=== PATIENT | female | born 2000 | race Caucasian/White ===

== ENCOUNTER 2025-04-08 03:51 | Emergency (ER) | payer OTHER, SELFPAY ==
[2025-04-08 03:54] VITALS: BP 98/61
[2025-04-08 04:51] VITALS: BMI 33.5
[2025-04-08 04:53] VITALS: BP 101/66
--- NOTE | 2025-04-08 05:18 | ED.GENMED ---
History of Present Illness
General
Chief Complaint: Skin Problem
Source: patient and family (Mother at bedside)
Exam Limitations: none
Time Seen by Provider: 04/08/25 04:36
History of Present Illness
History of Present Illness:
This is a 24-year-old female with no significant past medical history, takes no medicines on a daily basis. She presents with 2-day history of sore throat, low-grade fever with onset of painful palmar nodules yesterday and onset of pain bilateral
feet primarily at the soles and toes of her feet since last night.
She has had intermittent myalgias, intermittent chills and aches and intermittent palpitations more so with activity. No cough. Sore throat has improved but has not resolved. She has been eating and drinking normally. No abdominal pain or chest
pain. No dysuria no urgency no hematuria.
No known close contacts with similar symptoms.
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
Last menstrual period 1 week ago, normal and on time.
Sexually active. 1 partner. No prior history of STD.
Past History
Past History
ED Past Medical History: None
ED Past Surgical History: None
Social History
Tobacco: Non-smoker
Personal: Single
Living: with family
Employment: Employed
Family History
Family History: Other (Noncontributory)
Phy Exam
Physical Exam
Physical Exam:
GENERAL: 24-year-old female appears her stated age, bright and alert, pleasant, appears in no acute distress. Mother is accompanying.
EYE: pupils equal and reactive. anicteric
NECK: Supple, nontender, no meningismus, no significant adenopathy.
ENT: posterior pharynx is mildly injected with several superficial punctate ulcerations along the soft palate, oral mucosa is moist. TM clear b/l, nares patent.
CARDIAC: Regular rate and rhythm. no murmur. No rub.
LUNGS: Clear breath sounds bilaterally, no acute respiratory distress, no wheezes/rales/rhonchi
ABDOMEN: Soft, nondistended, without focal tenderness, no r/g, no cvat. normoactive BS.
NEUROLOGICAL: Alert and oriented x3, no focal neuro deficits. Gait is steady.
SKIN: Warm and dry, normal color, skin intact. Bilateral palms and soles with mildly painful macules.
MUSCULOSKELETAL: No C/C/E. peripheral pulses are full and equal b/l. No palpable tenderness.
PSYCH: Normal and appropriate interaction.
Course
Orders/Labs/Results
Orders:
Orders
04/08/25 05:17
CBC/With Diff [Complete Blood Count/With Diff] Urgent
Comprehensive Metabolic Panel Urgent
Syphilis/T. pallidum Ab Reflex Urgent
Comment: ADD ON
Rapid Strep Group A Urgent
MAT Source: Throat/Pharynx
Specimen Description:
Date Specimen was Collected: 04/08/25
Time Specimen was Collected: 05:15
04/08/25 05:18
Electrocardiogram (*1) Urgent
Reason for Study: Palpitations
EKG- Treatment ONCE
04/08/25 05:30
Add On- LAB Urgent
Tests Added?: RPR (syphillis/T. pallidum ab relfex)
Abnormal Lab Results
04/08/25
05:17
Absolute Monos (auto) 1.3 H 10^3/uL
(0.1-0.6)
Lymphocytes % 19.3 L %
(20.5-51.1)
Monocytes % 17.1 H %
(1.7-9.3)
Chloride 109 H mmol/L
(98-107)
BUN 19 H mg/dl
(7-17)
Glucose 107 H mg/dl
(70-99)
04/08/25 05:17
04/08/25 05:17
Vital Signs
Initial and Last Documented VS:
Initial Vital Signs
Temp Pulse Resp BP Pulse Ox
98.3 F 60 16 98/61 97
04/08/25 03:54 04/08/25 03:54 04/08/25 03:54 04/08/25 03:54 04/08/25 03:54
Last Documented Vital Signs
Temp Pulse Resp BP Pulse Ox
97.7 F 60 20 101/66 100
04/08/25 04:53 04/08/25 04:53 04/08/25 04:53 04/08/25 04:53 04/08/25 05:23
MDM/Problems Addressed
Differential Diagnosis Includes:
Concern for viral enanthem/exanthem such as uxfm-mldt-tjr-mouth disease, other consideration is strep pharyngitis, secondary syphilis.
Will check labs, rapid strep, RPR.
*Pulse Oximetry
SaO2: 100
Oxygen Mode of Delivery: Room air
Patient hypoxic: no
*Critical Care Note
Total Time (30-74mins, 75-104mins- exclusive of procedures): Not Applicable
Update Note
Update Note:
06:30
Labs are all reassuring. Rapid strep is negative.
RPR is pending.
Highly suspect bayf-yadr-nnz-mouth disease.
Recommend supportive measures, continuing ibuprofen increasing to 600 mg every 6 hours as needed for pain, fever.
Discussed importance of staying well-hydrated on a daily basis.
A work note has been provided for today and tomorrow with plan for return on Tuesday, April 10.
Prompt follow-up with PCP for recheck.
ED Attending Note
-
Portions of this chart may have been created with voice recognition software.� Occasional wrong word or��sound alike� substitutions may have occurred due to the inherent limitations of voice recognition software.
Discharge Plan
Departure
Patient Disposition: Home (Routine Discharge)
Date of Disposition: 04/08/25
Time of Disposition: 06:38
Patient with high blood pressure during this ER visit?: No
Condition: Good
Discharge Problem:
Hand, foot and mouth disease
Instructions: Hand, foot, and mouth disease and herpangina
Prescriptions:
No Action
No Current Medications
0
Referrals:
David Hsieh DO [Family Provider, Internal Medicine] - Call in 1-3 days for appt
Stand Alone Forms: Return to Work
Interventions
Interventions:
*Risk Screen - Suicide Last Done: 04/08/25 03:54
*General Assessment Last Done: 04/08/25 04:55
*Neglect/Abuse Screening Last Done: 04/08/25 03:54
*ED- Fall Risk Assessment Last Done: 04/08/25 03:57
*ED COVID-19 Vaccine History Last Done: 04/08/25 04:55
ED-Skin Assessment Last Done: 04/08/25 05:04
Discharge Date and Time
Print Language: UPPER SORBIAN
[2025-04-08 05:29] LABS: Hematocrit 38.5 % (37.0-47.0); Hemoglobin 13.1 g/dL (12.0-16.0); Mean Corp Hgb Conc. 34.0 g/dL (33.0-37.0); Mean Corpuscular Volume 90.4 fL (81.0-99.0); Nucleated Red Blood Cells % 0 %; Platelet Count 203 10^3/uL (130-400); Red Cell Dist. Width 12.4 % (11.5-14.5)
[2025-04-08 05:52] LABS: ALT (SGPT) 15 U/L (0-35); AST (SGOT) 19 U/L (14-36); Albumin 4.2 g/dl (3.5-5.0); Alkaline Phosphatase 39 U/L (38-126); Blood Urea Nitrogen 19 mg/dl (7-17); Calcium 8.9 mg/dl (8.4-10.2); Carbon Dioxide 23 mmol/L (22-30); Chloride 109 mmol/L (98-107); Estimated Creatinine Clearance 103 ml/min; Glucose 107 mg/dl (70-99); Potassium 4.2 mmol/L (3.5-5.1); Sodium 137 mmol/L (135-145); Total Protein 6.6 g/dl (6.3-8.2); eGFR > 60.00
[2025-04-08 07:09] VITALS: BP 96/66
[2025-04-09 15:21] LABS: Syphilis/T. pallidum Ab Reflex Negative (Negative)
== END 2025-04-08 07:05 | disposition home or self-care (01) ==
LOC: EMR 03:51
PROVIDERS: EMERGENCY PHYSICIAN Emergency Medicine; FAMILY PHYSICIAN Internal Medicine
DX: B08.4 Enteroviral vesicular stomatitis with exanthem (principal); R00.2 Palpitations
CPT/HCPCS: 99284; 80053; 85025; 86780; 87070; 87880; 93005